=== PATIENT | female | born 1955 | race Caucasian/White ===

== ENCOUNTER 2016-07-25 08:08 | Outpatient (CLI) | payer OTHER | END 2016-07-25 08:09 | disposition home or self-care (01) | DX: L76.34 Postprocedural seroma of skin and subcutaneous tissue following other procedure (principal) ==

== ENCOUNTER 2017-07-09 15:52 | Outpatient (CLI) | payer OTHER ==
--- NOTE | 2017-07-10 11:33 | Ultrasound Report ---
ULTRASOUND ANTERIOR ABDOMINAL WALL: 07/09/2017 CLINICAL INDICATION: Palpable abnormality, history of seroma. TECHNIQUE: Real-time scanning was performed with employment program representative static images obtained. FINDINGS: Ultrasound of the anterior abdominal wall was performed. The previously noted 1 mm thick collection is no longer appreciated. No sonographic correlate to the palpable abnormality is seen. IMPRESSION: RESOLUTION OF PREVIOUSLY SEEN SEROMA. NO SONOGRAPHIC CORRELATE TO THE PALPABLE ABNORMALITY IS IDENTIFIED. TD: 07/10/2017 11:31
== END 2017-07-09 15:53 | disposition home or self-care (01) ==
LOC: DI 15:52
PROVIDERS: ATTEND Physician Assistant
DX: R19.00 Intra-abdominal and pelvic swelling, mass and lump, unspecified site (principal)
CPT/HCPCS: 76705

== ENCOUNTER 2017-08-21 09:54 | Outpatient (CLI) | payer OTHER ==
--- NOTE | 2017-08-22 17:16 | Mammography Report ---
DIGITAL SCREENING MAMMOGRAM: 08/21/2017 CLINICAL INDICATION: A 62-year-old with history of bilateral implants with explantation for screening. TECHNIQUE: Routine CC and MLO projections were obtained of the breasts. COMPARISON: 12/2015, 11/2014, 10/2012, 10/2009. FINDINGS: The breasts demonstrate heterogeneously dense fibroglandular parenchyma bilaterally. A few punctate, typically benign calcifications are present. Postoperative changes are present bilaterally. No suspicious masses, clustered microcalcifications, or regions of architectural distortion are identified. IMPRESSION: BENIGN FINDINGS. RECOMMENDATION: Routine annual screening unless otherwise clinically indicated. BIRADS category 2 benign findings. STANDARD QUALIFYING STATEMENTS 1. This examination was reviewed with the aid of Computed-Aided Detection (CAD) . 2. A negative or benign imaging report should not delay biopsy if clinically suspicious findings are present. Consider surgical consultation if warranted. More than 5 % of cancers are not identified by imaging. 3. Dense breasts may obscure an underlying neoplasm. TD: 08/22/2017 15:32 [place]
== END 2017-08-21 09:55 | disposition home or self-care (01) ==
LOC: DI 09:54
PROVIDERS: ATTEND Physician Assistant
DX: Z12.31 Encounter for screening mammogram for malignant neoplasm of breast (principal); Z98.82 Breast implant status
CPT/HCPCS: 77067

== ENCOUNTER 2017-10-14 10:10 | Outpatient (CLI) | payer OTHER ==
--- NOTE | 2017-10-14 11:11 | XRAY Report ---
Procedure Date: 10/14/2017 Accession Number: [id number] / [id number] Procedure: XRS - Chest 2 View X-Ray CPT Code: 11033 FULL RESULT: EXAM: Chest 2 View X-Ray DATE: 10/14/2017 10:22 AM CLINICAL HISTORY: COUGH COMPARISON: None. TECHNIQUE: 2 views. FINDINGS: Lungs/Pleura: No focal opacities evident. No pneumothorax or pleural effusion. Normal volumes. Mediastinum: Heart and mediastinal contours are unremarkable. Other: None. IMPRESSION: Normal 2-view chest radiography. RADIA
== END 2017-10-14 10:11 | disposition home or self-care (01) ==
LOC: DI.S 10:10
PROVIDERS: ATTEND Nurse Practitioner Family
DX: R05 Cough (principal)
CPT/HCPCS: 71046

== ENCOUNTER 2020-01-03 13:04 | Outpatient (CLI) | payer OTHER ==
--- NOTE | 2020-01-04 16:19 | Mammography Report ---
BILATERAL DIGITAL SCREENING MAMMOGRAM 3D/2D: 01/03/2020 CLINICAL: Routine screening. Comparison is made to exams dated: 08/21/2017 mammogram, 01/03/2016 mammogram, 12/07/2014 mammogram, mammogram, and 11/08/2009 mammogram - [facility]. The tissue of both breast s is heterogeneously dense. This may lower the sensitivity of mammography. No significant masses, calcifications, or other findings are seen in either breast. There has been no significant interval change. IMPRESSION: NEGATIVE There is no mammographic evidence of malignancy. A 1 year screening mammogram is recommended. This exam was interpreted at Station ID: [id number]. NOTE: For mammograms, a report in lay terms will be sent to the patient. Approximately 15% of breast malignancies will not be visualized mammographically. In the management of a palpable breast mass, a negative mammogram must not discourage biopsy of a clinically suspicious lesion. Electronically Signed By: Ella carreon/sonia:01/03/2020 16:27:35 ACR BI-RADS Category 1: Negative 3341F PARENCHYMAL PATTERN: (D) - The breast(s) demonstrate(s) heterogeneously dense fibroglandular crystal becerra. BI-RADS CATEGORY: (1) - 1 RECOMMENDATION: (ANNUAL) - Recommend routine annual screening mammography. [id number] 1 year screening LATERALITY: (B)
== END 2020-01-03 13:05 | disposition home or self-care (01) ==
LOC: DI 13:04
DX: Z12.31 Encounter for screening mammogram for malignant neoplasm of breast (principal)
CPT/HCPCS: 77063; 77067